=== PATIENT | female | born 1990 | race Two or more races ===

== ENCOUNTER 2023-05-05 18:10 | Emergency (ER) | payer MEDICAID ==
[~2023-05-05] VITALS: Ht 170.2 cm; Wt 88.0 kg
[2023-05-05 19:14] LABS: Basophils # (auto) 0.1 10 ^3/uL (0-0.2); Basophils % (auto) 0.6 % (0.0-2.0); Eosinophils # (auto) 0.5 10 ^3/uL (0-0.8); Eosinophils % (auto) 4.3 % (0.0-7.0); Hematocrit 40.1 % (36.0-46.0); Hemoglobin 13.6 g/dL (12.2-16.2); Lymphocytes # (auto) 3.1 10 ^3/uL (0.4-5.4); Lymphocytes % (auto) 27.5 % (10.0-50.0); Mean Corpuscular Hemoglobin 29.2 pg (28.0-32.0); Mean Corpuscular Volume 86.1 fL (80.0-100.0); Monocytes # (auto) 0.5 10 ^3/uL (0-1.3); Monocytes % (auto) 4.8 % (0.0-12.0); Neutrophils % (auto) 62.8 % (37.0-80.0); Red Blood Cells 4.66 10^6/uL (4.0-5.20); Red Cell Distribution Width 12.9 % (11.8-14.3); White Blood Cell 11.2 10^3/uL (4.4-10.8)
[2023-05-05 19:42] LABS: Alanine Aminotransferase 20 U/L (7-40); Albumin 4.6 g/dL (3.2-4.8); Alkaline Phosphatase 76 U/L (46-116); Anion Gap 6 (5-15); Aspartate Aminotransferase 24 U/L (13-40); Blood Urea Nitrogen 10 mg/dL (9-23); Calcium 9.1 mg/dL (8.7-10.4); Carbon Dioxide 26 mmol/L (20-30); Chloride 106 mmol/L (98-107); Glucose 97 mg/dL (74-106); Lipase 63 U/L (12-53); Potassium 3.6 mmol/L (3.5-5.1); Sodium 138 mmol/L (136-145)
[2023-05-05 19:43] LABS: Urine Bacteria FEW /hpf (None Seen); Urine Blood Negative /uL (Negative); Urine Clarity Clear (Clear); Urine Color Colorless (Yellow); Urine Protein, UAD Negative (Negative); Urine Specific Gravity 1.006 (1.001-1.035); Urine Urobilinogen Normal (Negative); Urine WBC <1 /hpf (0 - 5)
[2023-05-05 19:43] LABS: Bilirubin, Total 0.3 mg/dL (0.2-1.0); Total Protein 6.9 g/dL (5.7-8.2)
[2023-05-05 22:33] VITALS: BP 110/49; PULSE 81; RESP 19; TEMP 98.7; O2SAT 98
== END 2023-05-05 22:35 | disposition home or self-care (01) ==
LOC: ER 18:10
DX: N39.0 Urinary tract infection, site not specified (principal)
CPT/HCPCS: 36415; 74176; 80053; 81001; 81025; 83690; 85025

== ENCOUNTER 2024-07-11 08:14 | Emergency (ER) | payer MEDICAID ==
[~2024-07-11] VITALS: Ht 170.2 cm; Wt 93.8 kg
[2024-07-11 08:53] LABS: Urine Bacteria None Seen /hpf (None Seen)
[2024-07-11 08:58] LABS: Basophils # (auto) 0.1 10 ^3/uL (0-0.2); Basophils % (auto) 0.6 % (0.0-2.0); Eosinophils # (auto) 0.4 10 ^3/uL (0-0.8); Eosinophils % (auto) 4.9 % (0.0-7.0); Hematocrit 39.6 % (36.0-46.0); Hemoglobin 13.8 g/dL (12.2-16.2); Lymphocytes # (auto) 2.1 10 ^3/uL (0.4-5.4); Lymphocytes % (auto) 24.5 % (10.0-50.0); Mean Corpuscular Hemoglobin 30.5 pg (28.0-32.0); Mean Corpuscular Hgb Conc. 34.9 g/dL (32.0-36.0); Mean Corpuscular Volume 87.2 fL (80.0-100.0); Monocytes # (auto) 0.5 10 ^3/uL (0-1.3); Monocytes % (auto) 5.8 % (0.0-12.0); Neutrophils # (auto) 5.5 10 ^3/uL (1.6-8.6); Neutrophils % (auto) 64.2 % (37.0-80.0); Nucleated Red Blood Cells % 0.1 %; Platelet Count (auto) 352 10^3/uL (140-450); Red Blood Cells 4.54 10^6/uL (4.0-5.20); Red Cell Distribution Width 12.9 % (11.8-14.3); White Blood Cell 8.6 10^3/uL (4.4-10.8)
[2024-07-11 09:07] LABS: Chloride 107 mmol/L (98-107); Sodium 139 mmol/L (136-145)
[2024-07-11 09:08] LABS: Anion Gap 6 (5-15); Calcium 9.6 mg/dL (8.7-10.4); Carbon Dioxide 26 mmol/L (20-31)
[2024-07-11 09:13] LABS: Blood Urea Nitrogen 10 mg/dL (9-23); Glucose 96 mg/dL (74-106); Lipase 51 U/L (12-53)
[2024-07-11 09:21] LABS: Urine Blood Negative /uL (Negative); Urine Clarity Clear (Clear); Urine Color Colorless (Yellow); Urine Protein, UAD Negative (Negative); Urine Specific Gravity 1.005 (1.001-1.035); Urine Squamous Epithelial Cell FEW /hpf (<5); Urine Urobilinogen Normal (Negative); Urine WBC <1 /hpf (0 - 5); Urine pH 6.5 (5.0-9.0)
--- NOTE | 2024-07-11 09:56 | ECG ---
[facility] Test Date: 2024-07-11 Test Time: 08:27:35 Pat Name: REBEL MARCUS Department: ER Room: Gender: F Aircraft Inspector: ANGELES : 1990 Requested By: ORALIA COSTA Order Number: [id number] Reading MD: Measurements Intervals [place] Rate: 73 P: 37 WI: 171 QRS: 17 QRSD: 100 T: 1 QT: 395 QTc: 436 Interpretive Statements Sinus rhythm Probable left atrial enlargement Borderline T abnormalities, diffuse leads Baseline wander in lead(s) I,II,aVR Please click the below link to view image of tracing.
[2024-07-11 10:46] VITALS: BP 132/72; PULSE 75; RESP 16; TEMP 98.6; O2SAT 98
--- NOTE | 2024-07-11 10:51 | ED.PDOC ---
GI ASSESSMENT HPI Comments 33 y.o female presents to the ED for a chief complaint of epigastric pain associated with upper back pain and nausea that started last night around 0000. Patient first described pain as a sharp, 10/10 pain and now is more of a burning sensation and rating an 8/10 on the pain scale. Patient reports pain is constant and took Ibuprofen but had no relief. Patient mentions having this pain in the past, was diagnosed with a UTI and gallstones at [place] and was advised to get a cholecystectomy but never followed up for surgery due to pain resolving with medication given then. Patient at this time denies any vomiting, diarrhea, fever, chills, or urinary symptoms. She denies substance, alcohol or tobacco use. Chief Complaint: Abdominal Pain Time Seen by MD: 10:37 Primary Care Provider: MARITZA Reviewed Notes: Nurses Notes, Medications, Allergies Allergies: Coded Allergies: NO KNOWN ALLERGIES (Unverified , 04/18/14) Information Source: Patient Mode of Arrival: Ambulatory Timing: Hours Duration: Since onset Quality: Burning, Sharp Vomitus: None Stool: Normal Severity: Mild Recent: None Recent Hx of: None Pain Location: Epigastric Modifying Factors: Nothing Associated sign and symptoms: Nausea, Abdominal Pain Past Medical History PAST MEDICAL HISTORY: Gallstones Surgical History: Denies all surgeries [employer] History: No Pertinent [employer] History Family History Family History: Unknown Social History Smoker: Non-Smoker Alcohol: Occasionally Drugs: Denies Drug Use Lives In: Home Constitutional: denies: chills, diaphoresis, fatigue, fever, malaise, sweats, weakness, others EENTM: denies: blurred vision, double vision, ear bleeding, ear discharge, ear drainage, ear pain, ear ringing, eye pain, eye redness, hearing loss, mouth pain, mouth swelling, nasal discharge, nose bleeding, nose congestion, nose pain, photophobia, tearing, throat pain, throat swelling, voice changes, others Respiratory: denies: cough, hemoptysis, orthopnea, SOB at rest, shortness of breath, SOB with excertion, stridor, wheezing, others Cardiovascular: denies: chest pain, dizzy spells, diaphoresis, Dyspnea on exertion, edema, irregular heart beat, left arm pain, lightheadedness, palpitations, PND, syncope, others Gastrointestinal: reports: abdominal pain, nausea; denies: abdomen distended, blood streaked bowels, constipated, diarrhea, dysphagia, difficulty swallowing, hematemesis, melena, poor appetite, poor fluid intake, rectal bleeding, rectal pain, vomiting, others Neurological: denies: dizziness, fainting, headache, left sided numbness, left sided weakness, numbness, paresthesia, pre-existing deficit, right sided numbness, right sided weakness, seizure, speech problems, tingling, tremors, weakness, others Musculoskeletal: reports: back pain; denies: gout, joint pain, joint swelling, muscle pain, muscle stiffness, neck pain, others Integumetry: denies: bruises, change in color, change in hair/nails, dryness, laceration, lesions, lumps, rash, wounds, others Hematologic/Lymphatic: denies: anemia, blood clots, easy bleeding, easy bruising, swollen glands, others Endocrine: denies: excessive hunger, excessive sweating, excessive thirst, excessive urination, flushing, intolerance to cold, intolerance to heat, unexplained weight gain, unexplained weight loss, others All Other Systems: Reviewed and Negative Physical Exam General Appearance: No Apparent Distress HEENT: Other (Moist mucous membranes) Neck: Full Range of Motion, Normal Inspection Respiratory: Lungs Clear, No Accessory Muscle Use, No Respiratory Distress, Normal Breath Sounds Cardiovascular: No Edema, No JVD, Regular Rate/Rhythm Breast Exam: Deferred Gastrointestinal: Epigastric, LUQ, Soft, Tenderness Genitalia: Deferred Pelvic: Deferred Rectal: Deferred Extremities: Normal inspection, Normal range of motion, Non-tender, No pedal edema Neurologic: Alert (Oriented x4), Normal Affect, Normal Mood, Other (Ambulatory without difficulty. No gross focal deficit.) Cerebellar Function: NOT DONE Reflexes: NOT DONE Skin: Dry, Normal Color, Warm Lymphatic: NOT DONE Was a procedure done? Was a procedure done?: No GI differential Dx Differential Diagnosis: Cholangitis, Cholecystitis, Esophagitis, Gastritis/PUD, Gastroenteritis, Inflammatory BD, UTI, Diabetes/ DKA, Electrolyte Imbalance, Food Poisoning, , Stress Ulcer X-Ray, Labs, Meds, VS Vital Signs Date Time Temp Pulse Resp B/P (MAP) Pulse Ox O2 Delivery O2 Flow Rate FiO2 07/11/24 10:46 98.6 75 16 132/72 (92) 98 98.6 07/11/24 10:46 75 16 98 Room Air* 0 21 07/11/24 10:00 98.6 80 16 125/75 (92) 100 98.6 07/11/24 08:27 73 07/11/24 08:20 98.7 81 16 121/41 (67) 98 Lab Test 07/11/24 08:37 07/11/24 08:00 Range/Units White Blood Count 8.6 4.4-10.8 10^3/uL Red Blood Count 4.54 4.0-5.20 10^6/uL Hemoglobin 13.8 12.2-16.2 g/dL Hematocrit 39.6 36.0-46.0 % Mean Corpuscular Volume 87.2 80.0-100.0 fL Mean Corpuscular Hemoglobin 30.5 28.0-32.0 pg Mean Corpuscular Hemoglobin Concent 34.9 32.0-36.0 g/dL Red Cell Distribution Width 12.9 11.8-14.3 % Platelet Count 352 140-450 10^3/uL Mean Platelet Volume 7.1 6.9-10.8 fL Neutrophils (%) (Auto) 64.2 37.0-80.0 % Lymphocytes (%) (Auto) 24.5 10.0-50.0 % Monocytes (%) (Auto) 5.8 0.0-12.0 % Eosinophils (%) (Auto) 4.9 0.0-7.0 % Basophils (%) (Auto) 0.6 0.0-2.0 % Neutrophils # (Auto) 5.5 1.6-8.6 10 ^3/uL Lymphocytes # (Auto) 2.1 0.4-5.4 10 ^3/uL Monocytes # (Auto) 0.5 0-1.3 10 ^3/uL Eosinophils # (Auto) 0.4 0-0.8 10 ^3/uL Basophils # (Auto) 0.1 0-0.2 10 ^3/uL Nucleated Red Blood Cells 0.1 % Sodium Level 139 136-145 mmol/L Potassium Level 4.0 3.5-5.1 mmol/L Chloride Level 107 98-107 mmol/L Carbon Dioxide Level 26 20-31 mmol/L Anion Gap 6 5-15 Blood Urea Nitrogen 10 9-23 mg/dL Creatinine 0.77 0.550-1.02 mg/dL Glomerular Filtration Rate Calc 105 >90 mL/min BUN/Creatinine Ratio 13.0 10.0-20.0 Serum Glucose 96 74-106 mg/dL Calcium Level 9.6 8.7-10.4 mg/dL Troponin I High Sensitivity < 3 L </=34 ng/L Lipase 51 12-53 U/L Urine Color Colorless Yellow Urine Clarity Clear Clear Urine pH 6.5 5.0-9.0 Urine Specific [place] 1.005 1.001-1.035 Urine Protein Negative Negative Urine Ketones Negative Negative Urine Blood Negative Negative /uL Urine Nitrite Negative Negative Urine Bilirubin Negative Negative Urine Urobilinogen Normal Negative mg/dL Urine Leukocyte Esterase Negative Negative /uL Urine RBC None seen 0 - 4 /hpf Urine WBC <1 0 - 5 /hpf Urine Squamous Epithelial Cells Few <5 /hpf Urine Bacteria None seen None Seen /hpf Urine Glucose Normal Normal mg/dL Current Medications Medications (Trade) Dose Ordered Sig/Millie Route Start Time Stop Time Status Last Admin Sodium Chloride 1,000 ml @ 1,000 mls/hr Q1H ONCE IV 07/11/24 10:45 07/11/24 11:44 DC 07/11/24 11:26 Ondansetron HCl (Zofran) 4 mg ONCE ONCE IV 07/11/24 10:45 07/11/24 11:19 DC 07/11/24 11:30 Pantoprazole Sodium (Protonix) 40 mg ONCE ONCE IV 07/11/24 10:45 07/11/24 11:19 DC 07/11/24 11:30 Lidocaine HCl (Xylocaine 2% Viscous) 10 ml ONCE ONCE PO 07/11/24 10:45 07/11/24 11:19 DC 07/11/24 11:30 Belladonna Alkaloids/ Phenobarbital ( Elixir) 10 ml ONCE ONCE PO 07/11/24 10:45 07/11/24 11:19 DC 07/11/24 11:29 Al Hydrox/Mg Hydrox/Simethicone (Maalox Plus) 30 ml ONCE ONCE PO 07/11/24 10:45 07/11/24 11:19 DC 07/11/24 11:30 PROCEDURE(s): ABPL - CT AB PEL WO CON-NO ORAL OR IV REASON: LUQ/epig pain, n/v ORDER NUMBER(s): [id number], ACCESSION NUMBER(s): [id number] CT ABDOMEN AND PELVIS WITHOUT CONTRAST CLINICAL HISTORY: LUQ/epig pain, n/v TECHNIQUE: Multiple contiguous axial images of the abdomen and pelvis without intravenous contrast. The images were reformatted degenerate coronal and sagittal reconstructions. All CT scans at this medical facility are performed using dose modulation techniques as appropriate to a performed exam including the following:Automated exposure control was utilized; adjustment of the MA and/or KV according to patient size; and use of iterative reconstruction technique. Radiation Dose Information: CT Dose: CTDI volume is 15 mGy. Dose-length product is 889 mGy*cm Comparison: CT CT AB PEL WO CON-NO ORAL OR IV on DOS: 05/05/23 FINDINGS: Evaluation of the abdomen and pelvis is limited without intravenous contrast. There is a 2.0 cm gallstone within the gallbladder. The liver, pancreas, kidneys, adrenal glands, and spleen appear within normal limits. There is no gross evidence of abdominal lymphadenopathy. There is no free fluid or free air. The stomach grossly appears unremarkable. The small and large bowel loops demonstrate normal caliber. There is a normal-appearing appendix seen in the right lower quadrant abdomen without inflammatory changes. The abdominal aorta and IVC appear within normal limits. The bladder appears unremarkable for the degree of distention. Pelvic organ appears within normal limits. There is no gross evidence of a pelvic mass. There is small amount of free fluid in the cul-de-sac, likely physiologic. Lung bases are clear. There is no acute osseous abnormality. IMPRESSION: 1. Cholelithiasis 2. There is no acute process in the abdomen and pelvis. HS:Y X-Ray, Labs, Meds, VS Comment 33-year-old female with a history of gallstones complaining of burning upper back pain that radiates to the epigastrium and left upper quadrant Vitals unremarkable Exam remarkable for epigastric and left upper quadrant tenderness to palpation Rhythm strip independently interpreted by me: Sinus rhythm, rate 81, no ectopy. CT abdomen and pelvis: IMPRESSION: 1. Cholelithiasis 2. There is no acute process in the abdomen and pelvis. CBC, CMP, lipase, troponin and UA unremarkable for any abnormality of acute significance Patient treated with the following in the ED: 1 L 0.9 normal saline IV bolus, Protonix 40 mg IV, Zofran 4 mg IV, viscous lidocaine 10 mL, 10 mL and Maalox 30 mL p.o.. On re-evaluation, patient states symptoms have improved. Vitals are stable, repeat abdominal exam is benign. Hospitalization was considered, however patient had rapid improvement of symptoms with treatment in the ED, and I no longer feel hospitalization is necessary. Patient now appears stable for outpatient treatment and close follow-up with her primary physician. Rx omeprazole, Tylenol, Zofran Time of 1ST Reevaluation: 10:46 Reevaluation 1ST: Unchanged Time of 2ND Reevaluation: 12:33 Reevaluation 2ND: Improved Patient Education/Counseling: Diagnosis, Treatment, Prognosis Family Education/Counseling: No Family Present Departure 1 Departure Time of Disposition: 12:36 Impression: Primary Impression: Abdominal pain Qualified Codes: R10.13 - Epigastric pain Disposition: 01 HOME / SELF CARE / HOMELESS Condition: Stable Additional Instructions: Your blood tests were unremarkable. Your urine test was normal. Your CT scan showed you have gallstones, which may be the cause of your pain. I have prescribed pain medication and medication for nausea. Follow-up with your primary doctor in 1-2 days. e-Prescriptions Acetaminophen (Tylenol Extra Strength) 500 Mg Tab 2 TAB PO Q6HP PRN, #30 TAB prn pain Prov: MATTHIAS HUGO MD 07/11/24 Dicyclomine Hcl (BENTYL CAPSULE) 10 Mg Cp 2 CAP PO Q6HP PRN, #30 CAP 11 Refills prn abdominal pain Prov: MATTHIAS HUGO MD 07/11/24 Ondansetron Odt 4MG Tab (ZOFRAN PO) 4 Mg Tb 4 MG PO TID PRN, #30 TAB prn nausea/vomiting ODT TAB-DISSOLVE IN MOUTH, THEN SWALLOW Prov: MATHTIAS HUGO MD 07/11/24 Omeprazole Magnesium (Omeprazole) 20 Mg Tab 20 MG PO DAILY, #30 TAB Prov: MATTHIAS HUGO MD 07/11/24 Discharged With: Self Critical Care Note Critical Care Time?: No Stability Stability form required: No I personally scribed for MATTHIAS HUGO MD ([facility] [place]) on 07/11/24 at 10:51. Electronically submitted by Mar March ([facility]). MATTHIAS HUGO MD Jul 11, 2024 10:51
--- NOTE | 2024-07-11 11:06 | DVH ---
CT ABDOMEN AND PELVIS WITHOUT CONTRAST CLINICAL HISTORY: LUQ/epig pain, n/v TECHNIQUE: Multiple contiguous axial images of the abdomen and pelvis without intravenous contrast. The images were reformatted degenerate coronal and sagittal reconstructions. All CT scans at this medical facility are performed using dose modulation techniques as appropriate t o a performed exam including the following:Automated exposure control was utilized; adjustment of the MA and/or KV according to patient size; and use of iterative reconstruction technique. Radiation Dose Information: CT Dose: CTDI volume is 15 mGy. Dose-length product is 889 mGy*cm Comparison: CT CT AB PEL WO CON-NO ORAL OR IV on DOS: 05/05/23 FINDINGS: Evaluation of the abdomen and pelvis is limited without intravenous contrast. There is a 2.0 cm gallstone within the gallbladder. The liver, pancreas, kidneys, adrenal glands, and spleen appear within normal limits. There is no gross evidence of abdominal lymphadenopathy. There is no free fluid or free air. The stomach grossly appears unremarkable. The small and large bowel loops demonstrate normal caliber . There is a normal-appearing appendix seen in the right lower quadrant abdomen without inflammatory changes. The abdominal aorta and IVC appear within normal limits. The bladder appears unremarkable for the degree of distention. Pelvic organ appears within normal mon its. There is no gross evidence of a pelvic mass. There is small amount of free fluid in the cul-de -sac, likely physiologic. Lung bases are clear. There is no acute osseous abnormality. IMPRESSION: 1. Cholelithiasis 2. There is no acute process in the abdomen and pelvis. HS:Y
[2024-07-11] MEDS: SODIUM CHLORIDE 0.9% 1,000 ML IV ONE (11:26)
[2024-07-11] MEDS: DONNATAL 5ml ORAL Elix (BELLADONNA ALK-PHENOBARB) PO ONE (11:29)
[2024-07-11] MEDS: PANTOPRAZOLE 40 MG/10 ML VIAL INJ IV ONE (11:30)
[2024-07-11] MEDS: LIDOCAINE VISCOUS 2% 15ML UD PO ONE (11:30)
[2024-07-11] MEDS: MAALOX PLUS or MAALOX 30 ML PO ONE (11:30)
[2024-07-11] MEDS: ONDANSETRON HCL 4 MG/2 ML VIAL IV ONE (11:30)
[2024-07-11] MEDS ORDERED: DICY10CA PO (12:39)
[2024-07-11] MEDS ORDERED: OMEP-434 PO (12:39)
[2024-07-11] MEDS ORDERED: ACET-1304 PO (12:39)
[2024-07-11] MEDS ORDERED: ZOFR4T PO (12:39)
== END 2024-07-11 14:03 | disposition home or self-care (01) ==
LOC: ER 08:14
DX: R10.13 Epigastric pain (principal)
CPT/HCPCS: 36415; 74176; 80048; 81001; 83690; 84484; 85025; 93005; 96361; 96374; 96375; 99285; J2405; J2470; J7030

== ENCOUNTER 2025-01-12 17:25 | Emergency (ER) | payer MEDICAID, OTHER ==
[~2025-01-12] VITALS: Ht 170.2 cm; Wt 97.1 kg
[~2025-01-12 17:25] MED LIST: ACET-1304 PO; DICY10CA PO; OMEP-434 PO; ZOFR4T PO
--- NOTE | 2025-01-12 18:35 | ED.PDOC ---
GI ASSESSMENT HPI Comments HPI: 34y F who presents to the ED via EMS for chief complaint of abdominal pain - pt states she has been having LUQ abdominal pain for the past 1x week - pt states the pain was intermittent but states since earlier this AM, it became constant, with noted pain radiating to the L flank region - pt rates the pain 7/10, constant, with no noted exacerbating or relieving factors - pt states she had these symptoms in the past and states she had CT and states she was told she has gallstones - pt otherwise denies any sick contacts or changes to diet - pt otherwise denies any other symptoms at this time - pt otherwise has stable vitals in the ED Past Medical history: GERD Past Surgical history: Medications: antacids Social History: Denies smoking, endorses ETOH, and denies drug use. Allergies: NKDA Marcus: Left upper quadrant pain HPI: Poor Historian. REVIEW OF SYSTEMS: CONSTITUTIONAL: Denies acute: fever, diaphoresis, chills, generalized weakness. HEAD: Denies acute: headache, photophobia Eyes: Denies acute: Double vision, vision loss, eye pain, eye discharge. EARS: Denies acute: tinnitus, hearing loss, ear discharge, ear pain, THROAT: Denies acute: sore throat, swelling, difficulty swallowing , pain with swallowing, change in voice. NECK: Denies acute: neck pain, neck swelling, stiff neck. HEART: Denies acute : chest pain, palpitations, LUNGS: Denies acute: SOB, wheezing, cough, hemoptysis ABDOMEN: Denies acute: Nausea, Vomiting, diarrhea, melena , hematemesis, hematochezia SKIN: Denies acute: rash, redness, lesions, itchiness. EXTREMITIES: Denies acute: calf pain, numbness, tingling, weakness, denies pain in extremity. Denies acute: Low back pain. Neuro: Denies acute: focal neurological deficit, motor or sensory focal neurological deficit, tremors, seizure like activity, confusion, dizziness, change in mental status, loss of bowel or bladder function, cauda equina like symptoms. : Denies acute: dysuria, hematuria, flank pain, increase in urinary frequency. PSYCH: Denies acute: hallucination, suicidal ideation, homicidal ideation. FEMALE: Denies acute: abnormal vaginal bleeding, foul odor, unusual discharge. PHYSICAL EXAM: General: ----mild----acute distress, awake and alert. Head: normocephalic, atraumatic. Neck: supple, trachea is midline, no swelling. Throat: Normal phonation. Eyes:, no erythema, no purulent discharge, no proptosis, no icterus. Heart: regular rate, regular rhythm, no significant murmur appreciated. Lungs: no apparent respiratory distress, Able to speak in full sentences. No wheezing, no rhonchi, no crackles. No stridors Clear to auscultation bilaterally. Abdomen: Left upper quadrant tender to palpation, non distended, soft, no guarding, no rebound, + bowel sounds. Neuro: Awake, Alert, oriented to name, self, situation, follows commands GCS=15. Speech is normal. Skin: no petechia, no purpura, no cyanosis, non-pale, not jaundice. Lower extremities: --no - Pitting edema no deformity, no focal swelling, no calf TTP. Makes eye contact. moves all four extremities. Face: no apparent facial droop. No CVA tenderness to percussion . Ambulating in the ED independently. ED COURSE: DISCLAIMER: This medical document was created using an electronic medical record system with voice recognition software and computerized dictation system. Although this document has been carefully reviewed, there might still be some phonetic and typographical errors. Occasional wrong-word or "sound-alike" substitutions may have occurred due to the inherent limitations of voice recognition software. These areas are purely typographical due to imperfections of the software programs and do not reflect any compromise in the patient's medical care. Please read the chart carefully and recognize, using context, where these substitutions have occurred. Chief Complaint: Abdominal Pain Time Seen by MD: 17:35 Reviewed Notes: Medications, Allergies Allergies: Coded Allergies: NO KNOWN ALLERGIES (Unverified , 04/18/14) Home Meds Active Scripts Acetaminophen (Tylenol Extra Strength) 500 Mg Tab, 2 TAB PO Q6HP PRN, #30 TAB prn pain Prov:MATTHIAS HUGO MD 07/11/24 Dicyclomine Hcl (BENTYL CAPSULE) 10 Mg Cp, 2 CAP PO Q6HP PRN, #30 CAP 11 Refills prn abdominal pain Prov:MATTHIAS HUGO MD 07/11/24 Ondansetron Odt 4MG Tab (ZOFRAN PO) 4 Mg Tb, 4 MG PO TID PRN, #30 TAB prn nausea/vomiting ODT TAB-DISSOLVE IN MOUTH, THEN SWALLOW Prov:MATTHIAS HUGO MD 07/11/24 Omeprazole Magnesium (Omeprazole) 20 Mg Tab, 20 MG PO DAILY, #30 TAB Prov:MATTHIAS HUGO MD 07/11/24 Information Source: Patient Mode of Arrival: Ambulatory Brought in by: self Was a procedure done? Was a procedure done?: No GI differential Dx Differential Diagnosis: Other (DDX include Diverticulitis, colitis, gastroenteritis, acute abdomen, SBO, enteritis, constipation, volvulus, appendicitis, Gallbladder disease, choledocolithiasis, ascending cholangitis, pancreatitis, intraAbdominal mass/neoplasm, hepatitis, UTI, pylonephritis, kidney stone, aneurysm, dissection, Inflammatory bowel disease, gastroparesis, ischemic bowel, ovarian torsion, ovarian cyst/mass, tubo-ovarian abscess, , ectopic , PID, STD.) X-Ray, Labs, Meds, VS Vital Signs Date Time Temp Pulse Resp B/P (MAP) Pulse Ox O2 Delivery O2 Flow Rate FiO2 01/12/25 19:42 70 18 95 Room Air 01/12/25 19:42 98.8 70 18 99/60 (73) 98 98.8 01/12/25 17:45 98.7 75 16 115/68 (84) 96 98.7 Lab Test 01/12/25 18:33 01/12/25 17:45 Range/Units White Blood Count 11.7 H 4.4-10.8 10^3/uL Red Blood Count 4.67 4.0-5.20 10^6/uL Hemoglobin 13.8 12.2-16.2 g/dL Hematocrit 40.4 36.0-46.0 % Mean Corpuscular Volume 86.4 80.0-100.0 fL Mean Corpuscular Hemoglobin 29.5 28.0-32.0 pg Mean Corpuscular Hemoglobin Concent 34.1 32.0-36.0 g/dL Red Cell Distribution Width 13.5 11.8-14.3 % Platelet Count 384 140-450 10^3/uL Mean Platelet Volume 7.3 6.9-10.8 fL Neutrophils (%) (Auto) 69.0 37.0-80.0 % Lymphocytes (%) (Auto) 21.8 10.0-50.0 % Monocytes (%) (Auto) 5.7 0.0-12.0 % Eosinophils (%) (Auto) 2.9 0.0-7.0 % Basophils (%) (Auto) 0.6 0.0-2.0 % Neutrophils # (Auto) 8.0 1.6-8.6 10 ^3/uL Lymphocytes # (Auto) 2.5 0.4-5.4 10 ^3/uL Monocytes # (Auto) 0.7 0-1.3 10 ^3/uL Eosinophils # (Auto) 0.3 0-0.8 10 ^3/uL Basophils # (Auto) 0.1 0-0.2 10 ^3/uL Nucleated Red Blood Cells 0.0 % Sodium Level 140 136-145 mmol/L Potassium Level 3.5 3.5-5.1 mmol/L Chloride Level 105 98-107 mmol/L Carbon Dioxide Level 26 20-31 mmol/L Anion Gap 9 5-15 Blood Urea Nitrogen 10 9-23 mg/dL Creatinine 0.92 0.550-1.02 mg/dL Glomerular Filtration Rate Calc 84 >90 mL/min BUN/Creatinine Ratio 10.9 10.0-20.0 Serum Glucose 89 74-106 mg/dL Lactic Acid Level 0.6 0.4-2.0 mmol/L Calcium Level 9.5 8.7-10.4 mg/dL Total Bilirubin 0.3 0.2-1.0 mg/dL Aspartate Amino Transferase (AST) 21 13-40 U/L Alanine Aminotransferase (ALT) 23 7-40 U/L Alkaline Phosphatase 76 46-116 U/L Total Protein 7.6 5.7-8.2 g/dL Albumin 5.1 H 3.2-4.8 g/dL Lipase 46 12-53 U/L Urine Color Colorless Yellow Urine Clarity Clear Clear Urine pH 6.0 5.0-9.0 Urine Specific [place] 1.007 1.001-1.035 Urine Protein Negative Negative Urine Ketones Negative Negative Urine Blood Trace H Negative /uL Urine Nitrite Negative Negative Urine Bilirubin Negative Negative Urine Urobilinogen Normal Negative mg/dL Urine Leukocyte Esterase Negative Negative /uL Urine RBC <1 0 - 4 /hpf Urine Microscopic WBC < 1 0-5 /HPF Urine Squamous Epithelial Cells Few <5 /hpf Urine Bacteria None seen None Seen /hpf Urine Glucose Normal Normal mg/dL Urine Test Negative Negative [facility] [address] [facility] [address] Ph: [phone] DIAGNOSTIC IMAGING Diagnostic Imaging Report : [id number] Signed PATIENT: REBEL MARCUSACCT: [id number] UNIT: [id number] : 1990 LOC: ER ROOM / BED: / AGE / SEX: 34 / F ADM STATUS: REG ER SERVICE 23 ORDERING PHYSICIAN: NITHIN VELASCO DO PROCEDURE(s): ABPL - CT AB PEL WO CON-NO ORAL OR IV REASON: LUQ pain ORDER NUMBER(s): [id number], ACCESSION NUMBER(s): [id number] Exam: CT CT AB PEL WO CON-NO ORAL OR IV History: LUQ pain Comparison Study: None TECHNIQUE: Multidetector CT of the abdomen was performed from lung bases to pubic symphysis. Imaging was performed without IV contrast. Axial, coronal and sagittal multiplanar reformats were obtained from the axial data set by the technologist. Radiation Dose Information: CT Dose: CTDI volume is 17.45 mGy. Dose-length product is 1136.77 mGy*cm FINDINGS: Evaluation of solid organs is limited due to lack of intravenous contrast use. Findings: Lung Bases: No acute or significant lung base finding. Normal heart size. No pleural or pericardial effusion. Liver: The liver is normal in size. No focal lesions. Gallbladder and Biliary Tree: Multiple gallstones in gallbladder. Spleen: Unremarkable Pancreas: The pancreas is grossly normal in appearance. Adrenal Glands: Unremarkable Kidneys: Kidneys are grossly normal without calculi or hydronephrosis. Bladder: Grossly unremarkable for degree of distention. Bowel: The stomach is grossly normal in appearance. Small bowel and colon are normal in caliber and distribution. The appendix is not visualized; however, no secondary findings of acute appendicitis identified. Ascites: Absent Lymphadenopathy: No mesenteric, retroperitoneal or periportal lymphadenopathy. Abdominal Wall and Mesentery: Unremarkable. Vasculature: The visualized abdominal aorta is normal in size and caliber. Evaluation of abdominal and pelvic vessels is limited due to lack of intravenous contrast. Pelvic Organs: Unremarkable Musculoskeletal: No aggressive focal bony lesions, acute fractures or dislocation. Soft tissues: Unremarkable IMPRESSION: 1. Multiple gallstones in the gallbladder. 2. No findings of bowel obstruction 3. No free air or free fluid. 4. Limited evaluation of the spleen without IV contrast.. Radiation optimization: All CT scans at this facility use at least one of these dose optimization techniques: automated exposure control mA and/or kV adjustment per patient size (includes targeted exams where dose is matched to clinical indication) or iterative reconstruction. HS:Y ATED BY: GIN GARSIA Jr., DO DICTATED DATE/TIME: 01/12/252040 SIGNED BY: GIN GARSIA Jr., SIGNED DATE/TIME: 01/12/252040 CC: Time of 1ST Reevaluation: 00:00 Reevaluation 1ST: N/A Patient Education/Counseling: Diagnosis, Treatment Family Education/Counseling: No Family Present Comments MDM: patient presented with the above HPI.----abdominal pain--workup was initiated. patient was found with the above mentioned diagnosis. the following medications were ordered: please refer to order lists of meds and tests obtained by myself Dr. Velasco. Patient ED course and VS have been stabilized. Patient has been reassessed in the ED and remained in a stable condition. Pertinent incidental findings were discussed with the patient and/or family. Patient/family voices understanding and is agreeable with plan. Patient has been observed in the ED adequate length of time to insure improvement/stability. Escalation of care considered: Consideration of escalation to observation or admission Patient was DISCHARGED home in a stable condition. All the reports of any imaging studies that were ordered by myself were reviewed by myself. SEPSIS Sepsis Screen Date sepsis recognized/suspect: Jan 12, 2025 Time Sepsis recognized/suspect: 1744 Recent Procedure: No On Antibiotic Therapy: No Respiratory Rate >20: No Heart Rate >90: No Temp<36 C (96.8 F) or >38.3 C: No SBP <90 or MAP <65 mmHG: No New Acute Mental Status Change: No Is the patient on CPAP, BIPAP,: No Physician Orders Certified Medical Transcriptionist (01/12/25 ) Ct Ab Pel Wo Con-No Oral Or Iv (01/12/25 19:24) Vital Signs Date Time Temp Pulse Resp B/P (MAP) Pulse Ox O2 Delivery O2 Flow Rate FiO2 01/12/25 19:42 70 18 95 Room Air 01/12/25 19:42 98.8 70 18 99/60 (73) 98 98.8 01/12/25 17:45 98.7 75 16 115/68 (84) 96 98.7 Laboratory Tests Test 01/12/25 18:33 Lactic Acid Level 0.6 mmol/L (0.4-2.0) White Blood Count 11.7 10^3/uL (4.4-10.8) H Departure 1 Departure Time of Disposition: 21:11 Impression: Primary Impression: Left upper quadrant pain Additional Impression: Cholelithiasis Disposition: HOME / SELF CARE / HOMELESS Condition: Stable Additional Instructions: Additional instructions: You MUST follow-up with your primary care/family doctor in 1 to 2 days. If you are unable to see your primary care/family doctor, please return to our emergency room for re-assessment and re-evaluation in 1 to 2 days. Return to the emergency room here in our facility or to the nearest ER [facility] if your symptoms change or worsen. CONSULTATIONS: you MUST Follow-up for consultation as soon as possible with: -gastroenterology in 1-2 days. Please call for appointment. You MUST call the consultants office yourself to make an appointment. You may need to arrange that through your insurance and/or your primary/family doctor. If you are unable to see the [facility] consultant in 1 to 2 days, you must return to our emergency room (or any other ER of your choice) for re-assessment and re- evaluation. Adequate fluid hydration. Below is a copy of your radiological report for follow up: [address] [address] Ph: [phone] DIAGNOSTIC IMAGING Diagnostic Imaging Report : [id number] Signed PATIENT: REBEL MARCUS ACCT: [id number] UNIT: [id number] : 1990 LOC: ER ROOM / BED: / AGE / SEX: 34 / F ADM STATUS: REG ER SERVICE 23 ORDERING PHYSICIAN: NITHIN VELASCO DO PROCEDURE(s): ABPL - CT AB PEL WO CON-NO ORAL OR IV REASON: LUQ pain ORDER NUMBER(s): [id number], ACCESSION NUMBER(s): [id number] Exam: CT CT AB PEL WO CON-NO ORAL OR IV History: LUQ pain Comparison Study: None TECHNIQUE: Multidetector CT of the abdomen was performed from lung bases to pubic symphysis. Imaging was performed without IV contrast. Axial, coronal and sagittal multiplanar reformats were obtained from the axial data set by the technologist. Radiation Dose Information: CT Dose: CTDI volume is 17.45 mGy. Dose-length product is 1136.77 mGy*cm FINDINGS: Evaluation of solid organs is limited due to lack of intravenous contrast use. Findings: Lung Bases: No acute or significant lung base finding. Normal heart size. No pleural or pericardial effusion. Liver: The liver is normal in size. No focal lesions. Gallbladder and Biliary Tree: Multiple gallstones in gallbladder. Spleen: Unremarkable Pancreas: The pancreas is grossly normal in appearance. Adrenal Glands: Unremarkable Kidneys: Kidneys are grossly normal without calculi or hydronephrosis. Bladder: Grossly unremarkable for degree of distention. Bowel: The stomach is grossly normal in appearance. Small bowel and colon are normal in caliber and distribution. The appendix is not visualized; however, no secondary findings of acute appendicitis identified. Ascites: Absent Lymphadenopathy: No mesenteric, retroperitoneal or periportal lymphadenopathy. Abdominal Wall and Mesentery: Unremarkable. Vasculature: The visualized abdominal aorta is normal in size and caliber. Evaluation of abdominal and pelvic vessels is limited due to lack of intravenous contrast. Pelvic Organs: Unremarkable Musculoskeletal: No aggressive focal bony lesions, acute fractures or dislocation. Soft tissues: Unremarkable IMPRESSION: 1. Multiple gallstones in the gallbladder. 2. No findings of bowel obstruction 3. No free air or free fluid. 4. Limited evaluation of the spleen without IV contrast.. Radiation optimization: All CT scans at this facility use at least one of these dose optimization techniques: automated exposure control mA and/or kV adjustment per patient size (includes targeted exams where dose is matched to clinical indication) or iterative reconstruction. HS:Y ATED BY: GIN GARSIA Jr., DO DICTATED DATE/TIME: 01/12/252040 SIGNED BY: GIN GARSIA Jr., SIGNED DATE/TIME: 01/12/252040 CC: Discharged With: Self Critical Care Note Critical Care Time?: No I personally scribed for NITHIN VELASCO DO ([email or web address]) on 01/12/25 at 18:35. Electronically submitted by Allyn Munoz ([email or web address]). I personally scribed for NITHIN VELASCO DO ([email or web address]) on 01/12/25 at 21:14. Electronically submitted by Allyn Munoz ([email or web address]). NITHIN VELASCO DO Jan 12, 2025 18:35
[2025-01-12 18:54] LABS: Hematocrit 40.4 % (36.0-46.0); Hemoglobin 13.8 g/dL (12.2-16.2); Mean Corpuscular Hemoglobin 29.5 pg (28.0-32.0); Mean Corpuscular Volume 86.4 fL (80.0-100.0); Nucleated Red Blood Cells % 0.0 %
[2025-01-12 19:09] LABS: Alanine Aminotransferase 23 U/L (7-40); Alkaline Phosphatase 76 U/L (46-116); Anion Gap 9 (5-15); BUN/Creatinine Ratio 10.9 (10.0-20.0); Blood Urea Nitrogen 10 mg/dL (9-23); Calcium 9.5 mg/dL (8.7-10.4); Carbon Dioxide 26 mmol/L (20-31); Chloride 105 mmol/L (98-107); Glucose 89 mg/dL (74-106); Lipase 46 U/L (12-53); Sodium 140 mmol/L (136-145); Total Protein 7.6 g/dL (5.7-8.2)
[2025-01-12 19:10] LABS: Bilirubin, Total 0.3 mg/dL (0.2-1.0)
[2025-01-12 19:16] LABS: Albumin 5.1 g/dL (3.2-4.8); Potassium 3.5 mmol/L (3.5-5.1)
[2025-01-12 19:42] VITALS: BP 99/60; PULSE 70; RESP 18; TEMP 98.8; O2SAT 95
[2025-01-12 19:44] LABS: Urine Protein, UAD Negative (Negative)
--- NOTE | 2025-01-12 20:44 | DVH ---
Exam: CT CT AB PEL WO CON-NO ORAL OR IV History: LUQ pain Comparison Study: None TECHNIQUE: Multidetector CT of the abdomen was performed from lung bases to pubic symphysis. Imaging was performed without IV contrast. Axial, coronal and sagittal multiplanar reformats were obtained fr om the axial data set by the technologist. Radiation Dose Information: CT Dose: CTDI volume is 17.45 mGy. Dose-length product is 1136.77 mGy*cm FINDINGS: Evaluation of solid organs is limited due to lack of intravenous contrast use. Findings: Lung Bases: No acute or significant lung base finding. Normal heart size. No pleural or pericardial effusion. Liver: The liver is normal in size. No focal lesions. Gallbladder and Biliary Tree: Multiple gallstones in gallbladder. Spleen: Unremarkable Pancreas: The pancreas is grossly normal in appearance. Adrenal Glands: Unremarkable Kidneys: Kidneys are grossly normal without calculi or hydronephrosis. Bladder: Grossly unremarkable for degree of distention. Bowel: The stomach is grossly normal in appearance. Small bowel and colon are normal in caliber and d istribution. The appendix is not visualized; however, no secondary findings of acute appendicitis id entified. Ascites: Absent Lymphadenopathy: No mesenteric, retroperitoneal or periportal lymphadenopathy. Abdominal Wall and Mesentery: Unremarkable. Vasculature: The visualized abdominal aorta is normal in size and caliber. Evaluation of abdominal a nd pelvic vessels is limited due to lack of intravenous contrast. Pelvic Organs: Unremarkable Musculoskeletal: No aggressive focal bony lesions, acute fractures or dislocation. Soft tissues: Unremarkable IMPRESSION: 1. Multiple gallstones in the gallbladder. 2. No findings of bowel obstruction 3. No free air or free fluid. 4. Limited evaluation of the spleen without IV contrast.. Radiation optimization: All CT scans at this facility use at least one of these dose optimization te chniques: automated exposure control mA and/or kV adjustment per patient size (includes targeted exa ms where dose is matched to clinical indication) or iterative reconstruction. HS:Y
== END 2025-01-12 21:25 | disposition home or self-care (01) ==
LOC: MERGE 17:25 → ER 17:25
DX: K80.20 Calculus of gallbladder without cholecystitis without obstruction (principal); R10.12 Left upper quadrant pain; K21.9 Gastro-esophageal reflux disease without esophagitis; Z98.890 Other specified postprocedural states
CPT/HCPCS: 36415; 74176; 80053; 81001; 81025; 83605; 83690; 85025

== ENCOUNTER 2025-03-04 02:02 | Emergency (ER) | payer MEDICAID ==
[~2025-03-04] VITALS: Ht 167.6 cm; Wt 91.0 kg
[2025-03-04 02:04] VITALS: BP 113/68; PULSE 88; RESP 18; TEMP 98.9; O2SAT 100
--- NOTE | 2025-03-04 02:20 | ED.PDOC ---
DIRECTOR OUTCOMES HPI Comments 34-year-old female who came to ER for vaginal bleeding. Patient is a , approximately 5 weeks . Has been having vaginal bleeding since yesterday, progressively worsened today, associated with lower back pains, and lower abdominal cramping pain Chief Complaint: Vaginal Bleed Time Seen by MD: 02:20 Allergies: Coded Allergies: NO KNOWN ALLERGIES (Unverified , 04/18/14) Home Meds Active Scripts Acetaminophen (Tylenol Extra Strength) 500 Mg Tab, 2 TAB PO Q6HP PRN, #30 TAB prn pain Prov:MATTHIAS HUGO MD 07/11/24 Dicyclomine Hcl (BENTYL CAPSULE) 10 Mg Cp, 2 CAP PO Q6HP PRN, #30 CAP 11 Refills prn abdominal pain Prov:MATTHIAS HUGO MD 07/11/24 Ondansetron Odt 4MG Tab (ZOFRAN PO) 4 Mg Tb, 4 MG PO TID PRN, #30 TAB prn nausea/vomiting ODT TAB-DISSOLVE IN MOUTH, THEN SWALLOW Prov:MATTHIAS HUGO MD 07/11/24 Omeprazole Magnesium (Omeprazole) 20 Mg Tab, 20 MG PO DAILY, #30 TAB Prov:MATTHIAS HUGO MD 07/11/24 Information Source: Patient Mode of Arrival: Ambulatory Timing: Days Vaginal Discharge: None Vaginal Lesions: None Bleeding Quality: Bright Red Vaginal Mass: None Onset Of Mass/Bleeding: Spontaneous Sexual Activity: Last Consensual [place]: Unknown Control: None History of: Current Associated Signs and Symptoms: Vaginal Bleeding, Abdominal Pain Past Medical History PAST MEDICAL HISTORY: Gallstones, Denies Surgical History: Denies all surgeries [employer]ER [employer] ASSEMBLER History: No Pertinent [employer] AS[employer]BLER History 3 Para 2 Family History Family History: Reviewed,noncontributory to illness Social History Smoker: Non-Smoker Alcohol: Denies ETOH Use Drugs: Denies Drug Use Lives In: Home Constitutional: denies: chills, diaphoresis, fatigue, fever, malaise, sweats, weakness, others EENTM: denies: blurred vision, double vision, ear bleeding, ear discharge, ear drainage, ear pain, ear ringing, eye pain, eye redness, hearing loss, mouth pain, mouth swelling, nasal discharge, nose bleeding, nose congestion, nose pain, photophobia, tearing, throat pain, throat swelling, voice changes, others Respiratory: denies: cough, hemoptysis, orthopnea, SOB at rest, shortness of breath, SOB with excertion, stridor, wheezing, others Cardiovascular: denies: chest pain, dizzy spells, diaphoresis, Dyspnea on exertion, edema, irregular heart beat, left arm pain, lightheadedness, palpitations, PND, syncope, others Gastrointestinal: reports: abdominal pain; denies: abdomen distended, blood streaked bowels, constipated, diarrhea, dysphagia, difficulty swallowing, hematemesis, melena, nausea, poor appetite, poor fluid intake, rectal bleeding, rectal pain, vomiting, others Genitourinary: reports: abnormal vagina bleeding; denies: burning, dyspareunia, dysuria, flank pain, frequency, hematuria, incontinence, pain, , vagina discharge, urgency, others Neurological: denies: dizziness, fainting, headache, left sided numbness, left sided weakness, numbness, paresthesia, pre-existing deficit, right sided numbness, right sided weakness, seizure, speech problems, tingling, tremors, weakness, others Musculoskeletal: reports: back pain; denies: gout, joint pain, joint swelling, muscle pain, muscle stiffness, neck pain, others Integumetry: denies: bruises, change in color, change in hair/nails, dryness, laceration, lesions, lumps, rash, wounds, others Allergic/Immunocompromised: denies: Difficulty Healing, Frequent Infections, Hives, Itching, others Hematologic/Lymphatic: denies: anemia, blood clots, easy bleeding, easy bruising, swollen glands, others Endocrine: denies: excessive hunger, excessive sweating, excessive thirst, excessive urination, flushing, intolerance to cold, intolerance to heat, unexplained weight gain, unexplained weight loss, others Psychiatric: denies: anxiety, bipolar disorder, depression, hopeless, panic disorder, schizophrenia, sleepless, suicidal, others Physical Exam General Appearance: No Apparent Distress, Normal HEENT: Normal ENT Inspection, Pharynx Normal, TMs Normal Neck: Full Range of Motion, Non-Tender, Normal, Normal Inspection Respiratory: Chest Non-Tender, Lungs Clear, No Accessory Muscle Use, No Respiratory Distress, Normal Breath Sounds Cardiovascular: No Edema, No JVD, No Murmur, No Gallop, Normal Peripheral Pulses, Regular Rate/Rhythm Breast Exam: Deferred Gastrointestinal: No Organomegaly, Non Tender, No Pulsatile Mass, Normal Bowel Sounds, Soft Genitalia: Deferred Pelvic: Deferred Rectal: Deferred Extremities: No calf tenderness, Normal capillary refill, Normal inspection, Normal range of motion, Non-tender, No pedal edema Musculoskeletal : Apperance: Normal Neurologic: Alert, animal control specialist II-XII nml as Tested, No Motor Deficits, Normal Affect, Normal Mood, No Sensory Deficits Cerebellar Function: Normal Reflexes: Normal Skin: Dry, Normal Color, Warm Lymphatic: No Adenopathy Was a procedure done? Was a procedure done?: No Differential Diagnosis ([employer]SEMBLER) Vaginal Bleeding: - Missed, - Threatened, Ectopic , UTI X-Ray, Labs, Meds, VS Vital Signs Date Time Temp Pulse Resp B/P (MAP) Pulse Ox O2 Delivery O2 Flow Rate FiO2 03/04/25 02:04 98.9 88 18 113/68 100 98.9 03/04/25 02:04 88 18 100 Room Air Lab Test 03/04/25 02:20 03/04/25 02:16 Range/Units White Blood Count 12.5 H 4.4-10.8 10^3/uL Red Blood Count 4.92 4.0-5.20 10^6/uL Hemoglobin 14.5 12.2-16.2 g/dL Hematocrit 41.8 36.0-46.0 % Mean Corpuscular Volume 84.9 80.0-100.0 fL Mean Corpuscular Hemoglobin 29.6 28.0-32.0 pg Mean Corpuscular Hemoglobin Concent 34.8 32.0-36.0 g/dL Red Cell Distribution Width 13.6 11.8-14.3 % Platelet Count 385 140-450 10^3/uL Mean Platelet Volume 7.2 6.9-10.8 fL Neutrophils (%) (Auto) 68.0 37.0-80.0 % Lymphocytes (%) (Auto) 21.7 10.0-50.0 % Monocytes (%) (Auto) 5.8 0.0-12.0 % Eosinophils (%) (Auto) 3.8 0.0-7.0 % Basophils (%) (Auto) 0.7 0.0-2.0 % Neutrophils # (Auto) 8.5 1.6-8.6 10 ^3/uL Lymphocytes # (Auto) 2.7 0.4-5.4 10 ^3/uL Monocytes # (Auto) 0.7 0-1.3 10 ^3/uL Eosinophils # (Auto) 0.5 0-0.8 10 ^3/uL Basophils # (Auto) 0.1 0-0.2 10 ^3/uL Nucleated Red Blood Cells 0.1 % Sodium Level 142 136-145 mmol/L Potassium Level 3.4 L 3.5-5.1 mmol/L Chloride Level 106 98-107 mmol/L Carbon Dioxide Level 27 20-31 mmol/L Anion Gap 9 5-15 Blood Urea Nitrogen 8 L 9-23 mg/dL Creatinine 0.99 0.550-1.02 mg/dL Glomerular Filtration Rate Calc 77 >90 mL/min BUN/Creatinine Ratio 8.1 L 10.0-20.0 Serum Glucose 92 74-106 mg/dL Calcium Level 9.1 8.7-10.4 mg/dL Beta HCG, Quantitative 13.1 H 1.5-4.2 mIU/mL Urine Color Colorless Yellow Urine Clarity Clear Clear Urine pH 6.0 5.0-9.0 Urine Specific [place] 1.014 1.001-1.035 Urine Protein Negative Negative Urine Ketones Negative Negative Urine Blood 3+ H Negative /uL Urine Nitrite Negative Negative Urine Bilirubin Negative Negative Urine Urobilinogen Normal Negative mg/dL Urine Leukocyte Esterase 1+ Negative /uL Urine RBC 471 0 - 4 /hpf Urine Microscopic WBC 3 0-5 /HPF Urine Squamous Epithelial Cells Few <5 /hpf Urine Bacteria Few H None Seen /hpf Urine Yeast (Budding) Occasional None Seen /hpf Urine Glucose Normal Normal mg/dL Time of 1ST Reevaluation: 02:18 Reevaluation 1ST: Unchanged Patient Education/Counseling: Diagnosis, Treatment Family Education/Counseling: No Family Present Departure 1 Departure Time of Disposition: 04:00 Impression: Primary Impression: Vaginal bleeding affecting early Disposition: 01 HOME / SELF CARE / HOMELESS Condition: Stable Discharged With: Self Critical Care Note Critical Care Time?: No Stability Stability form required: No Heart Score Heart Score: Heart Score Response (Comments) Value History N/A 0 EKG N/A 0 Age N/A 0 Risk Factors N/A 0 Troponin N/A 0 Total 0 I personally scribed for FRANCES ROYAL MD ([email or web address]) on 03/04/25 at 02:20. Electronically submitted by Camacho Tamez ([facility] FRANCES ROYAL MD Mar 04, 2025 02:20
[2025-03-04 02:44] LABS: Chloride 106 mmol/L (98-107); Sodium 142 mmol/L (136-145)
[2025-03-04 02:45] LABS: Anion Gap 9 (5-15); Calcium 9.1 mg/dL (8.7-10.4); Carbon Dioxide 27 mmol/L (20-31)
[2025-03-04 02:50] LABS: BUN/Creatinine Ratio 8.1 (10.0-20.0); Glucose 92 mg/dL (74-106); Hematocrit 41.8 % (36.0-46.0); Hemoglobin 14.5 g/dL (12.2-16.2); Mean Corpuscular Hemoglobin 29.6 pg (28.0-32.0); Mean Corpuscular Volume 84.9 fL (80.0-100.0); Nucleated Red Blood Cells % 0.1 %
[2025-03-04 02:52] LABS: Blood Urea Nitrogen 8 mg/dL (9-23); Potassium 3.4 mmol/L (3.5-5.1)
[2025-03-04 04:38] LABS: Urine Budding Yeast OCCASIONAL /hpf (None Seen); Urine Protein, UAD Negative (Negative)
== END 2025-03-04 06:27 | disposition home or self-care (01) ==
LOC: ER 02:02
DX: O20.0 Threatened abortion (principal); Z3A.01 Less than 8 weeks gestation of pregnancy; Z79.899 Other long term (current) drug therapy
CPT/HCPCS: 36415; 80048; 81001; 84702; 85025